=== PATIENT | female | born 1940 | race Two or more races ===

== ENCOUNTER 2019-04-17 08:53 | Emergency (ER) | payer OTHER ==
[~2019-04-17] VITALS: Ht 157.5 cm; Wt 68.5 kg
[~2019-04-17 08:53] MED LIST: DICLOFENAC SODI50 MG PO; LEXAPRO5 MG; METFORMIN HCL500 M1 PO; NORVASC10 MG; SEPTRA DS TABLE1 TAB PO; SYNTHROID50 MCG PO; VAITORIN; VYTORIN 10-20 M1 TAB
[2019-04-17] MEDS ORDERED: LEXAPRO20 MG (09:30)
[2019-04-17] MEDS ORDERED: CRESTOR10 MG (09:30)
[2019-04-17] MEDS ORDERED: TOPROL XL100 M1 (09:31)
== END 2019-04-17 11:10 | disposition home or self-care (01) ==
LOC: ER 08:53
DX: M75.52 Bursitis of left shoulder (principal); M54.32 Sciatica, left side

== ENCOUNTER 2019-04-28 19:10 | Emergency (ER) | payer OTHER ==
[~2019-04-28] VITALS: Ht 157.5 cm; Wt 68.5 kg
[~2019-04-28 19:10] MED LIST changes: +CRESTOR10 MG; +LEXAPRO20 MG; +TOPROL XL100 M1
[2019-04-28] MEDS ORDERED: BACTRIM DS TAB1 EACH PO (23:22)
== END 2019-04-28 23:48 | disposition home or self-care (01) ==
LOC: ER 19:10
DX: K52.89 Other specified noninfective gastroenteritis and colitis (principal); N39.0 Urinary tract infection, site not specified; B96.89 Other specified bacterial agents as the cause of diseases classified elsewhere; R10.13 Epigastric pain

== ENCOUNTER 2020-08-05 14:50 | Emergency (ER) | payer OTHER ==
[~2020-08-05] VITALS: Ht 157.5 cm; Wt 68.9 kg
[~2020-08-05 14:50] MED LIST changes: +BACTRIM DS TAB1 EACH PO
== END 2020-08-05 16:34 | disposition home or self-care (01) ==
LOC: ER 14:50
DX: M79.605 Pain in left leg (principal)

== ENCOUNTER 2021-04-07 11:36 | Inpatient (IN) | payer OTHER ==
[~2021-04-07] VITALS: Ht 157.5 cm; Wt 62.1 kg
== END 2021-04-12 10:10 | disposition home or self-care (01) | DRG 311 ==
LOC: ER 11:36 → MEDI 18:50
PROVIDERS: ADMIT Internal Medicine; ATTEND Internal Medicine
PROC: 3E0F7SF Introduction of Other Gas into Respiratory Tract, Via Natural or Artificial Opening (ICD-10-PCS; 2021-04-07)
PROC: 4A12X4Z Monitoring of Cardiac Electrical Activity, External Approach (ICD-10-PCS; 2021-04-08)
PROC: CB2YYZZ Tomographic (Tomo) Nuclear Medicine Imaging of Respiratory System using Other Radionuclide (ICD-10-PCS; principal; 2021-04-10)
PROC: B24BZZZ Ultrasonography of Heart with Aorta (ICD-10-PCS; 2021-04-10)
PROC: C51DYZZ Planar Nuclear Medicine Imaging of Bilateral Lower Extremity Veins using Other Radionuclide (ICD-10-PCS; 2021-04-10)
PROC: 4A033R1 Measurement of Arterial Saturation, Peripheral, Percutaneous Approach (ICD-10-PCS; 2021-04-11)
DX: I20.8 Other forms of angina pectoris (principal); E11.59 Type 2 diabetes mellitus with other circulatory complications; I07.1 Rheumatic tricuspid insufficiency; R09.02 Hypoxemia; I27.20 Pulmonary hypertension, unspecified; I44.7 Left bundle-branch block, unspecified; I10 Essential (primary) hypertension; E78.49 Other hyperlipidemia; Z79.4 Long term (current) use of insulin; E03.8 Other specified hypothyroidism; E66.8 Other obesity; R06.02 Shortness of breath; Z20.822 Contact with and (suspected) exposure to COVID-19

== ENCOUNTER 2021-08-14 05:49 | Emergency (ER) | payer OTHER ==
[~2021-08-14] VITALS: Ht 157.5 cm; Wt 56.7 kg
== END 2021-08-14 15:09 | disposition home or self-care (01) ==
LOC: ER 05:49
DX: R10.32 Left lower quadrant pain (principal)